=== PATIENT | male | born 1955 | race Caucasian/White ===

== ENCOUNTER 2016-07-18 19:21 | Emergency (ER) | payer MEDICARE, SELFPAY ==
[~2016-07-18 19:21] MED LIST: ACTOS45 MG PO; ASPIRIN325 MG PO; GLUCOPHAGE-DPS500 MG PO; METOPROLOL SUCC25 MG PO; PLAVIX75 MG PO; PRAVACHOL20 MG PO; ZESTRIL DPS20 MG PO; ZYRTEC DPS10 MG PO
--- NOTE | 2016-07-19 19:08 | ER ---
ADMIT: 07/18/2016 RM/LOC: ER [facility] MR#: [id number] [address] [id number] NOLVIA ORTEGA [address] [place] [id number] Emergency Room Report SEX: M AGE: 61 : 1955 DATE: 07/18/2016 HISTORY OF PRESENT ILLNESS: Nolvia is a 61-year-old male, presents to the emergency room complaining of chills, diarrhea for 3 days. He has had diarrhea, low fluid intake, and no appetite. He is alert and oriented. REVIEW OF SYSTEMS: Otherwise negative. He does have some flat affect. PAST MEDICAL HISTORY: Diabetes type 2, hypertension, CVA. He used to be pretty healthy and then once he had the CVA, it was 2 in a row. He was put on Plavix. Advised by Dr. Penny that if he had another one within a year, it would be very possible that he had another one. PHYSICAL EXAMINATION: VITAL SIGNS: Within normal limits. Blood pressure 126/63, heart rate is 61, respirations 18, temp is 96.2, O2 sats 100%. ENT: Does show dry oral mucosa. SKIN: Intact. CVS: Regular in rate and rhythm. ABDOMEN: Nontender. Bowel sounds are hyperactive, however. EXTREMITIES: Nontender, no edema. LABORATORY DATA: CBC within normal limits. Chemistry; BUN of 30, glucose 165, creatinine is 1.4, pH is 7.4550, ketones negative. CLINICAL IMPRESSION: Diarrhea, viral gastroenteritis with dehydration. PLAN: The patient will get 2 L of normal saline altogether. Instructions to follow up with his primary provider. No medications at this time given to him. He is going to have to hydrate. Follow up with PCP. Continue home medications. PATRICIA Kuo / Owen Shah MD / modl JOB #: [id number] CC: Owen Shah MD, Attending Physician Negrito De Los Santos DO, Family Physician
== END 2016-07-18 22:51 | disposition home or self-care (01) ==
LOC: ER 19:21
DX: A08.4 Viral intestinal infection, unspecified (principal); E86.0 Dehydration; R19.7 Diarrhea, unspecified; E11.9 Type 2 diabetes mellitus without complications; I10 Essential (primary) hypertension; Z86.73 Personal history of transient ischemic attack (TIA), and cerebral infarction without residual deficits; Z79.899 Other long term (current) drug therapy